=== PATIENT | male | born 1940 | race Two or more races ===

== ENCOUNTER 2024-11-17 14:53 | Inpatient (IN) | payer BC ==
[~2024-11-17] VITALS: Ht 170.2 cm; Wt 67.5 kg
[2024-11-17 15:22] LABS: ABG BASE EXCESS -7.1 mmol/L (-2.0-3.0); ABG OXYGEN SATURATION 98.6 % (94.0-98.0); ABG PCO2 26.7 mmHg (35.0-48.0); ABG PH 7.406 (7.350-7.450); ABG PO2 137.4 mmHg (83.0-108.0); ABG TOTAL HEMOGLOBIN 9.9 G/dL (13.5-17.5); COHb 0.3 % (0.5-1.5); MetHb 0.3 % (0.0-1.5); SITE, ABG RIGHT RADIAL
[2024-11-17 15:40] LABS: BASOPHILS % (AUTO) 0.2 % (0.0-2.0); EOSINOPHILS # (AUTO) 0.1 K/uL (0.0-0.7); EOSINOPHILS % (AUTO) 0.6 % (0.0-6.0); HEMATOCRIT 31 % (39-51); HEMOGLOBIN 9.8 g/dL (13.5-17.5); LYMPHOCYTES # (AUTO) 0.5 K/uL (0.8-4.8); MEAN CORPUSCULAR HEMOGLOBIN 26 PG (26.0-33.0); MEAN CORPUSCULAR HGB CONC 31 g/dl (31.0-36.0); MEAN CORPUSCULAR VOLUME 84 fL (80-96); MONOCYTES # (AUTO) 0.9 K/uL (0.1-1.30); MONOCYTES % (AUTO) 6.9 % (2.0-12.0); NEUTROPHILS # (AUTO) 11.7 K/uL (1.8-8.9); NEUTROPHILS % (AUTO) 88.3 % (43.0-81.0); PLATELET COUNT (AUTO) 303 K/uL (150-450); RED BLOOD CELL COUNT(AUTO) 3.71 MIL/uL (4.5-6.0); RED CELL DISTRIBUTION WIDTH 21.2 % (11.5-15.0); WHITE BLOOD COUNT (AUTO) 13.2 K/uL (4.3-11.0)
[2024-11-17] MEDS ORDERED: CHOL100043 PO (15:49)
[2024-11-17] MEDS ORDERED: TRAZ-182 PO (15:49)
[2024-11-17] MEDS ORDERED: [UNRECOGNIZED DRUG - CODE] PO (15:49)
[2024-11-17] MEDS ORDERED: SENN-261 PO (15:49)
[2024-11-17] MEDS ORDERED: MELA3TAB41 PO (15:49)
[2024-11-17] MEDS ORDERED: AMLO10TA4 PO (15:49)
[2024-11-17] MEDS ORDERED: MULT-594 PO (15:49)
[2024-11-17] MEDS ORDERED: CLOP75TA15 PO (15:49)
[2024-11-17] MEDS ORDERED: HYDR-4303 PO (15:49)
[2024-11-17] MEDS ORDERED: FERR325T23 PO (15:49)
[2024-11-17] MEDS ORDERED: MAGN500T2 PO (15:49)
[2024-11-17] MEDS ORDERED: MEGE40TA5 PO (15:49)
[2024-11-17] MEDS ORDERED: LOSA25TA27 PO (15:49)
[2024-11-17] MEDS ORDERED: GABA100C PO (15:49)
[2024-11-17] MEDS ORDERED: SIME125C81 PO (15:49)
[2024-11-17] MEDS ORDERED: FURO-145 PO (15:49)
[2024-11-17] MEDS ORDERED: PANT40TA2 PO (15:49)
[2024-11-17] MEDS ORDERED: ATOR40TA PO (15:49)
[2024-11-17 15:50] LABS: CALCIUM, SERUM 9.3 mg/dL (8.5-10.1); CARBON DIOXIDE 20 mmol/L (21-32); CHLORIDE 110 mmol/L (98-107); CREATININE 4.7 mg/dL (0.6-1.3); GLUCOSE 130 mg/dL (74-106); POTASSIUM 5.3 mmol/L (3.5-5.1); SODIUM SERUM 141 mmol/L (136-145); UREA NITROGEN, BLOOD 55 mg/dL (7-18)
[2024-11-17 15:56] LABS: ALANINE AMINOTRANSFERASE 96 U/L (12-78); ALBUMIN 2.1 g/dL (3.4-5.0); ALKALINE PHOSPHATASE 474 U/L (46-116); ASPARTATE AMINOTRANSFERASE 137 U/L (15-37); BILIRUBIN,DIRECT 0.8 mg/dL (0.0-0.2); BILIRUBIN,TOTAL 1.2 mg/dL (0.2-1.0); TOTAL PROTEIN, SERUM 7.5 g/dL (6.4-8.2)
[2024-11-17] MEDS ORDERED: CEPH-570 PO (15:58)
[2024-11-17] MEDS: CEFEPIME 1 GM in IV D5W 50 ML IV ONE (17:22)
[2024-11-17 17:24] LABS: LACTIC ACID 2.3 mmol/L (0.4-2.0)
[2024-11-17] MEDS: VANCOMYCIN 1 GM in IV D5W 250 ML IV ONE (17:43)
[2024-11-17 18:06] LABS: APPEARANCE,URINE CLEAR (CLEAR); BILIRUBIN,URINE NEGATIVE (NEGATIVE); BLOOD, URINE TRACE-INTA Ery/uL (NEGATIVE); COLOR,URINE YELLOW (YELLOW); KETONES,URINE NEGATIVE (NEGATIVE); LEUKOCYTE ESTERASE ,URINE NEGATIVE (NEGATIVE); NITRITE, URINE NEGATIVE (NEGATIVE); PH,URINE 5.5 (5.0-8.0); PROTEIN,URINE 2+ mg/dl (NEGATIVE); UGLUCOSE NEGATIVE (NEGATIVE); UROBILINOGEN,URINE 0.2 EU/dL (0.2)
[2024-11-17 18:12] LABS: ADD URINE CULTURE NO; BACTERIA,URINE None seen /HPF (None Seen); HYALINE CASTS, URINE Few /LPF (None Seen); MUCUS,URINE Few /LPF (None Seen); SQUAMOUS EPITHELIAL CELL,UR 0-2 /HPF (None Seen); URINE AMORPHOUS URATE Many /HPF (None Seen); WBC,URINE 0-2 /HPF (0-3)
[2024-11-17] MEDS ORDERED: ONDANSETRON HCL/PF 4 MG/2 ML VIAL IVP PRN (18:30)
[2024-11-17] MEDS ORDERED: MAG HYDROX/AL HYDROX/SIMETH 30 ML UDC PO PRN (18:30)
[2024-11-17] MEDS ORDERED: MAGNESIUM HYDROXIDE 30 ML UDC PO PRN (18:30)
[2024-11-17] MEDS ORDERED: Z GUARD REMEDY 4 OZ OINT TP PRN (18:30)
[2024-11-17] MEDS ORDERED: ACETAMINOPHEN 325 MG TABLET PO PRN (18:30)
[2024-11-17 21:32] VITALS: BP 127/84; TEMP 98.1; O2SAT 99
[2024-11-17] MEDS ORDERED: METRONIDAZOLE 500MG/ NS 100ML 200 ML IV ONE (23:00)
[2024-11-17] MEDS: IV NS 0.9% 1,000 ML BAG IV ONE (23:11)
[2024-11-17] MEDS: METRONIDAZOLE 500MG/ NS 100ML 500 MG in PREMIX 1 EA IV SCH (23:18)
[2024-11-17] MEDS ORDERED: CEFTRIAXONE 1GM BAG (ER ONLY) 50 ML IV ONE (23:45)
[2024-11-17] MEDS: CEFTRIAXONE 1 G in IV D5W 50 ML IV SCH (23:52)
[2024-11-18] VITALS: BP 155/83; TEMP 98.2; O2SAT 99
[2024-11-18 06:53] LABS: BASOPHILS % (AUTO) 0.1 % (0.0-2.0); EOSINOPHILS # (AUTO) 0.2 K/uL (0.0-0.7); EOSINOPHILS % (AUTO) 1.3 % (0.0-6.0); HEMATOCRIT 29 % (39-51); LYMPHOCYTES # (AUTO) 0.5 K/uL (0.8-4.8); LYMPHOCYTES % (AUTO) 3.5 % (20.0-44.0); MEAN CORPUSCULAR HEMOGLOBIN 26 PG (26.0-33.0); MEAN CORPUSCULAR HGB CONC 31 g/dl (31.0-36.0); MEAN CORPUSCULAR VOLUME 86 fL (80-96); MONOCYTES % (AUTO) 7.6 % (2.0-12.0); NEUTROPHILS # (AUTO) 11.9 K/uL (1.8-8.9); NEUTROPHILS % (AUTO) 87.5 % (43.0-81.0); PLATELET COUNT (AUTO) 273 K/uL (150-450); RED BLOOD CELL COUNT(AUTO) 3.42 MIL/uL (4.5-6.0); RED CELL DISTRIBUTION WIDTH 20.7 % (11.5-15.0); WHITE BLOOD COUNT (AUTO) 13.5 K/uL (4.3-11.0)
[2024-11-18 07:01] LABS: CALCIUM, SERUM 9.1 mg/dL (8.5-10.1); CREATININE 4.5 mg/dL (0.6-1.3); MAGNESIUM 2.8 mg/dL (1.8-2.4); PHOSPHORUS 4.7 mg/dL (2.5-4.9)
[2024-11-18 07:25] LABS: THYROID STIMULATING HORMONE 4.71 uIU/mL (0.358-3.74)
[2024-11-18 07:30] VITALS: BP 148/86; TEMP 97.7; O2SAT 99
[2024-11-18] MEDS: PANTOPRAZOLE 40 MG TABLET.DR PO SCH (07:58)
[2024-11-18] MEDS ORDERED: [UNRECOGNIZED DRUG - OTHER] PO SCH (11:00)
[2024-11-18 11:21] LABS: INR 1.13 (0.91-1.10); PARTIAL THROMBOPLASTIN TIME 28.8 SEC (24.3-34.3); PROTHROMBIN TIME 11.9 SECS (9.2-11.1)
[2024-11-18] MEDS: CHOLECALCIFEROL 1,000 UNIT TABLET (VIT D3) PO SCH (11:39)
[2024-11-18] MEDS: [UNRECOGNIZED DRUG - OTHER] PO SCH (14:06)
[2024-11-18] MEDS: ALBUMIN 25% 25 GM in PREMIX 1 EA IV SCH (15:47)
[2024-11-18] MEDS: MEROPENEM 500 MG in IV NS 0.9% 50 ML IV SCH (15:47)
[2024-11-18 16:00] VITALS: BP 156/84; TEMP 97.7; O2SAT 100
[2024-11-18] MEDS: MEGESTROL ACETATE 40 MG TABLET PO SCH (16:29)
[2024-11-18] MEDS: ELECTROLYTE,ORAL 1,000 ML BOTTLE PO SCH (16:29)
[2024-11-18] MEDS: ENSURE ENLIVE CHOC 237 ML CAN PO SCH (16:30)
[2024-11-18] MEDS: HYDROCODONE/APAP 5/325MG TABLET PO PRN (17:13)
[2024-11-18 20:00] VITALS: BP 158/89; TEMP 98.1; O2SAT 100
[2024-11-18] MEDS: TRAZODONE 50 MG TABLET PO SCH (22:00)
[2024-11-18] MEDS: GABAPENTIN 100 MG CAPSULE PO SCH (22:10)
[2024-11-19] VITALS (7 sets, daily range): BP systolic 123–156; BP diastolic 62–90; TEMP 97.5–98.7; O2SAT 98–100
[2024-11-19 07:12] LABS: ALBUMIN 3.2 g/dL (3.4-5.0); BILIRUBIN,TOTAL 1.4 mg/dL (0.2-1.0); CREATININE 4.4 mg/dL (0.6-1.3); MAGNESIUM 2.6 mg/dL (1.8-2.4); PHOSPHORUS 4.8 mg/dL (2.5-4.9); POTASSIUM 5.3 mmol/L (3.5-5.1); TOTAL PROTEIN, SERUM 6.9 g/dL (6.4-8.2)
[2024-11-19 07:26] LABS: BASOPHILS % (AUTO) 0.1 % (0.0-2.0); EOSINOPHILS # (AUTO) 0.2 K/uL (0.0-0.7); EOSINOPHILS % (AUTO) 1.4 % (0.0-6.0); HEMATOCRIT 23 % (39-51); HEMOGLOBIN 7.4 g/dL (13.5-17.5); LYMPHOCYTES # (AUTO) 0.5 K/uL (0.8-4.8); LYMPHOCYTES % (AUTO) 4.6 % (20.0-44.0); MEAN CORPUSCULAR HEMOGLOBIN 27 PG (26.0-33.0); MEAN CORPUSCULAR HGB CONC 32 g/dl (31.0-36.0); MEAN CORPUSCULAR VOLUME 84 fL (80-96); MONOCYTES # (AUTO) 1.1 K/uL (0.1-1.30); MONOCYTES % (AUTO) 10.6 % (2.0-12.0); NEUTROPHILS % (AUTO) 83.3 % (43.0-81.0); PLATELET COUNT (AUTO) 217 K/uL (150-450); RED BLOOD CELL COUNT(AUTO) 2.72 MIL/uL (4.5-6.0); RED CELL DISTRIBUTION WIDTH 20.7 % (11.5-15.0); WHITE BLOOD COUNT (AUTO) 10.8 K/uL (4.3-11.0)
[2024-11-19] MEDS: SENNOSIDES 8.6 MG TABLET PO SCH (08:41)
[2024-11-19] MEDS: FERROUS SULFATE (325 MG) 325 MG/TAB TABLET PO SCH (08:41)
[2024-11-19] MEDS: AMLODIPINE BESYLATE 10 MG TABLET PO SCH (08:41)
[2024-11-19] MEDS: MULTIVITAMINS,THERAGRAN 1 UDTAB TABLET PO SCH (08:41)
[2024-11-19] MEDS: ATORVASTATIN 40 MG TABLET PO SCH (08:41)
[2024-11-19] MEDS: MAGNESIUM OXIDE 400 MG TABLET PO SCH (08:41)
[2024-11-19] MEDS: CLOPIDOGREL BISULFATE 75 MG TABLET PO SCH (08:42)
[2024-11-19] MEDS: ALBUMIN 25% 25 GM in PREMIX 1 EA IV PRN (11:57)
[2024-11-20] VITALS: BP 133/67; TEMP 98.1; O2SAT 100
[2024-11-20 04:00] VITALS: BP 133/69; TEMP 97.9; O2SAT 100
[2024-11-20 07:14] LABS: CALCIUM, SERUM 9.3 mg/dL (8.5-10.1); CREATININE 4.2 mg/dL (0.6-1.3); POTASSIUM 5.2 mmol/L (3.5-5.1)
[2024-11-20 08:00] VITALS: BP 134/65; TEMP 98.2; O2SAT 100
[2024-11-20 12:06] LABS: *SPE A/G RATIO 0.9 (0.7-1.7); *SPE ALPHA-1-GLOBULIN 0.3 g/dL (0.0-0.4); *SPE ALPHA-2-GLOBULIN 0.7 g/dL (0.4-1.0); *SPE BETA GLOBULIN 0.8 g/dL (0.7-1.3); *SPE GLOBULIN, TOTAL 3.5 g/dL (2.2-3.9); *SPE M-SPIKE Not Observed g/dL (Not Observed); *SPE PROTEIN TOTAL 6.5 g/dL (6.0-8.5); *SPEGAMMA GLOBULIN 1.6 g/dL (0.4-1.8)
[2024-11-20] MEDS: SODIUM ZIRCONIUM CYCLOSILICATE 10 GM POWD.PACK PO SCH (13:21)
[2024-11-20] MEDS: IV 1/2NS 1000 ML 1,000 ML IV ONE (13:21)
[2024-11-20 16:00] VITALS: BP 137/73; TEMP 98.1; O2SAT 100
[2024-11-20 21:01] VITALS: BP 130/82; TEMP 98.1; O2SAT 100
[2024-11-20 23:06] LABS: PTH, INTACT 45 pg/mL (15-65)
[2024-11-21] VITALS (7 sets, daily range): BP systolic 114–138; BP diastolic 70–79; TEMP 94.5–98.1; O2SAT 98–100
[2024-11-21 07:13] LABS: POTASSIUM 5.1 mmol/L (3.5-5.1)
[2024-11-22 07:27] LABS: CALCIUM, SERUM 9.6 mg/dL (8.5-10.1); CREATININE 4.1 mg/dL (0.6-1.3); POTASSIUM 4.9 mmol/L (3.5-5.1)
[2024-11-22 08:00] VITALS: BP 123/65; TEMP 97.9; O2SAT 98
[2024-11-22] MEDS: SODIUM ZIRCONIUM CYCLOSILICATE 10 GM POWD.PACK PO SCH (09:11)
[2024-11-22 16:00] VITALS: BP 129/68; TEMP 97.9; O2SAT 100
[2024-11-23 08:00] VITALS: BP 131/76; TEMP 97.5; O2SAT 100
[2024-11-23] MEDS: IV D5W 1,000 ML IV PRN (10:22)
[2024-11-23] MEDS ORDERED: IV D5W 1,000 ML IV PRN (10:30)
[2024-11-23 16:00] VITALS: BP 120/78; TEMP 97.5; O2SAT 100
[2024-11-23 20:00] VITALS: BP 127/60; TEMP 97.7; O2SAT 100
[2024-11-23 22:08] LABS: BASOPHILS % (AUTO) 0.1 % (0.0-2.0); EOSINOPHILS % (AUTO) 0.3 % (0.0-6.0); LYMPHOCYTES # (AUTO) 0.7 K/uL (0.8-4.8); LYMPHOCYTES % (AUTO) 4.9 % (20.0-44.0); MEAN CORPUSCULAR HEMOGLOBIN 27 PG (26.0-33.0); MEAN CORPUSCULAR HGB CONC 31 g/dl (31.0-36.0); MEAN CORPUSCULAR VOLUME 87 fL (80-96); MONOCYTES # (AUTO) 1.3 K/uL (0.1-1.30); NEUTROPHILS # (AUTO) 11.5 K/uL (1.8-8.9); NEUTROPHILS % (AUTO) 84.7 % (43.0-81.0); PLATELET COUNT (AUTO) 154 K/uL (150-450); RED BLOOD CELL COUNT(AUTO) 2.45 MIL/uL (4.5-6.0); RED CELL DISTRIBUTION WIDTH 21.9 % (11.5-15.0); WHITE BLOOD COUNT (AUTO) 13.5 K/uL (4.3-11.0)
[2024-11-23 22:12] LABS: ALBUMIN 2.2 g/dL (3.4-5.0); BILIRUBIN,TOTAL 1.9 mg/dL (0.2-1.0); CREATININE 4.4 mg/dL (0.6-1.3); MAGNESIUM 2.7 mg/dL (1.8-2.4); PHOSPHORUS 5.1 mg/dL (2.5-4.9); POTASSIUM 5.1 mmol/L (3.5-5.1); TOTAL PROTEIN, SERUM 5.6 g/dL (6.4-8.2)
[2024-11-23 22:25] LABS: HEMATOCRIT 21 % (39-51); HEMOGLOBIN 6.5 g/dL (13.5-17.5)
[2024-11-23 23:10] LABS: ANISOCYTOSIS 1+; BASOPHILS % (MANUAL) 0 % (0.0-2.0); EOSINOPHILS % (MANUAL) 0 % (0-4); LYMPHOCYTES % (MANUAL) 4 % (16-48); NEUTROPHILS % (MANUAL) 87 (42-76); PLATELET ESTIMATE ADEQUATE
[2024-11-23 23:11] LABS: MONOCYTES % (MANUAL) 9 % (0-11.0)
[2024-11-24] VITALS (9 sets, daily range): BP systolic 106–126; BP diastolic 56–94; TEMP 97.9–98.6; O2SAT 94–100
[2024-11-25] MEDS: MORPHINE SULFATE INJ 2 MG/ML DISP.SYRIN IV PRN (00:17)
[2024-11-25 03:31] LABS: BASOPHILS % (AUTO) 0.3 % (0.0-2.0); EOSINOPHILS # (AUTO) 0.1 K/uL (0.0-0.7); EOSINOPHILS % (AUTO) 0.8 % (0.0-6.0); HEMATOCRIT 25 % (39-51); HEMOGLOBIN 7.9 g/dL (13.5-17.5); LYMPHOCYTES # (AUTO) 0.5 K/uL (0.8-4.8); LYMPHOCYTES % (AUTO) 3.5 % (20.0-44.0); MEAN CORPUSCULAR HEMOGLOBIN 28 PG (26.0-33.0); MEAN CORPUSCULAR HGB CONC 31 g/dl (31.0-36.0); MEAN CORPUSCULAR VOLUME 89 fL (80-96); MONOCYTES # (AUTO) 1.1 K/uL (0.1-1.30); MONOCYTES % (AUTO) 7.5 % (2.0-12.0); NEUTROPHILS % (AUTO) 87.9 % (43.0-81.0); PLATELET COUNT (AUTO) 136 K/uL (150-450); RED BLOOD CELL COUNT(AUTO) 2.84 MIL/uL (4.5-6.0); RED CELL DISTRIBUTION WIDTH 21.6 % (11.5-15.0); WHITE BLOOD COUNT (AUTO) 14.8 K/uL (4.3-11.0)
[2024-11-25 08:00] VITALS: BP 103/56; TEMP 97.6; O2SAT 100
[2024-11-25 08:49] LABS: ALBUMIN 1.8 g/dL (3.4-5.0); BILIRUBIN,TOTAL 1.7 mg/dL (0.2-1.0); CALCIUM, SERUM 8.5 mg/dL (8.5-10.1); CREATININE 4.8 mg/dL (0.6-1.3); MAGNESIUM 2.8 mg/dL (1.8-2.4); POTASSIUM 4.6 mmol/L (3.5-5.1); TOTAL PROTEIN, SERUM 5.5 g/dL (6.4-8.2)
[2024-11-25] MEDS ORDERED: MORPHINE SULFATE INJ 2 MG/ML DISP.SYRIN IV PRN (09:00)
== END 2024-11-25 11:09 | disposition hospice, inpatient (51) | DRG 374 ==
LOC: ER 15:00 → TELE 21:07 → MED 11-21 17:02
PROVIDERS: ADMIT Nurse Practitioner Acute Care; ATTEND Nurse Practitioner Acute Care
PROC: 0W9G3ZZ Drainage of Peritoneal Cavity, Percutaneous Approach (ICD-10-PCS; principal; 2024-11-19)
PROC: 30233N1 Transfusion of Nonautologous Red Blood Cells into Peripheral Vein, Percutaneous Approach (ICD-10-PCS; 2024-11-24)
DX: C78.6 Secondary malignant neoplasm of retroperitoneum and peritoneum (principal); G92.8 Other toxic encephalopathy; K65.2 Spontaneous bacterial peritonitis; J96.01 Acute respiratory failure with hypoxia; N17.0 Acute kidney failure with tubular necrosis; R64 Cachexia; E87.20 Acidosis, unspecified; J90 Pleural effusion, not elsewhere classified; C49.A2 Gastrointestinal stromal tumor of stomach; E87.0 Hyperosmolality and hypernatremia; K56.7 Ileus, unspecified; K56.609 Unspecified intestinal obstruction, unspecified as to partial versus complete obstruction; M48.56XA Collapsed vertebra, not elsewhere classified, lumbar region, initial encounter for fracture; J98.11 Atelectasis; C78.02 Secondary malignant neoplasm of left lung; C78.01 Secondary malignant neoplasm of right lung; R18.0 Malignant ascites; C79.89 Secondary malignant neoplasm of other specified sites; D63.8 Anemia in other chronic diseases classified elsewhere; D72.829 Elevated white blood cell count, unspecified; I25.10 Atherosclerotic heart disease of native coronary artery without angina pectoris; K21.9 Gastro-esophageal reflux disease without esophagitis; N18.9 Chronic kidney disease, unspecified; Z86.73 Personal history of transient ischemic attack (TIA), and cerebral infarction without residual deficits; Z95.0 Presence of cardiac pacemaker; Z92.21 Personal history of antineoplastic chemotherapy; Z88.0 Allergy status to penicillin; Z20.822 Contact with and (suspected) exposure to COVID-19; R53.1 Weakness; I12.9 Hypertensive chronic kidney disease with stage 1 through stage 4 chronic kidney disease, or unspecified chronic kidney disease; E78.5 Hyperlipidemia, unspecified; Z66 Do not resuscitate; Z51.5 Encounter for palliative care; Z74.01 Bed confinement status; R62.7 Adult failure to thrive; E87.5 Hyperkalemia; E86.9 Volume depletion, unspecified; M89.8X9 Other specified disorders of bone, unspecified site; I71.43 Infrarenal abdominal aortic aneurysm, without rupture; Z68.23 Body mass index [BMI] 23.0-23.9, adult; E87.70 Fluid overload, unspecified; Z88.6 Allergy status to analgesic agent; Z79.899 Other long term (current) drug therapy
CPT/HCPCS: 36415; 36600; 49083; 71045-TC; 76770-TC; 80048-TC; 80053-TC; 80061-TC; 80076-TC; 81001; 82550-TC; 82803-TC; 82962-TC; 83605-TC; 83735-TC; 83970; 84100-TC; 84155; 84165; 84439-TC; 84443-TC; 84484-TC; 85025-TC; 85378-TC; 85610-TC; 85730-TC; 86850-TC; 87040-TC; 87086-TC; 93307-TC; 93970-TC; 97110-TC; 97530-TC; 97535-TC; A4216; A4223; G0378; J0692; J0696; J2185; J2270; J3370; J3490; J7030; J7040; J7050; J7060; J7070; P9016; P9047

== ENCOUNTER 2024-11-25 11:13 | Inpatient (IN) | payer BC, OTHER ==
[~2024-11-25] VITALS: Ht 170.2 cm; Wt 63.0 kg
[~2024-11-25 11:13] MED LIST: AMLO10TA4 PO; ATOR40TA PO; CEPH-570 PO; CHOL100043 PO; CLOP75TA15 PO; FERR325T23 PO; FURO-145 PO; GABA100C PO; HYDR-4303 PO; LOSA25TA27 PO; MAGN500T2 PO; MEGE40TA5 PO; MELA3TAB41 PO; MULT-594 PO; PANT40TA2 PO; SENN-261 PO; SIME125C81 PO; TRAZ-182 PO; [UNRECOGNIZED DRUG - CODE] PO
[2024-11-25] MEDS ORDERED: LORAZEPAM INJ 2 MG/ML VIAL IV PRN (12:00)
[2024-11-25] MEDS ORDERED: ACETAMINOPHEN 650 MG/SUPP.RECT RC PRN (12:30)
[2024-11-25] MEDS: SCOPOLAMINE PATCH 1 MG/72HR TD SCH (13:41)
[2024-11-25] MEDS ORDERED: KEY,NONCONTROL,TO KEEP IN PYXI 1 EA MC ONE (14:18)
[2024-11-25 16:00] VITALS: BP 114/66; TEMP 97.5; O2SAT 97
[2024-11-25 20:22] VITALS: BP 97/77; TEMP 97.7; O2SAT 100
== END 2024-11-26 12:10 | DRG 951 ==
LOC: HOSPICE 11:13
PROVIDERS: ADMIT Nurse Practitioner Acute Care; ATTEND Nurse Practitioner Acute Care
DX: Z51.5 Encounter for palliative care (principal); J96.01 Acute respiratory failure with hypoxia; M48.56XA Collapsed vertebra, not elsewhere classified, lumbar region, initial encounter for fracture; G93.40 Encephalopathy, unspecified; R18.8 Other ascites; C78.00 Secondary malignant neoplasm of unspecified lung; C79.89 Secondary malignant neoplasm of other specified sites; E78.5 Hyperlipidemia, unspecified; R62.7 Adult failure to thrive; I71.43 Infrarenal abdominal aortic aneurysm, without rupture; Z85.831 Personal history of malignant neoplasm of soft tissue; Z95.0 Presence of cardiac pacemaker; Z88.6 Allergy status to analgesic agent; Z88.0 Allergy status to penicillin; I10 Essential (primary) hypertension; Z79.02 Long term (current) use of antithrombotics/antiplatelets; Z79.899 Other long term (current) drug therapy; I25.10 Atherosclerotic heart disease of native coronary artery without angina pectoris
CPT/HCPCS: G0378; J2274; J7040; J7060